=== PATIENT | male | born 1980 | race Caucasian/White ===

== ENCOUNTER 2018-04-28 12:31 | Emergency (ER) | payer BC, OTHER ==
[~2018-04-28] VITALS: Ht 182.9 cm; Wt 83.0 kg
[~2018-04-28 12:31] MED LIST: ALPR1TAB2
[2018-04-28] MEDS ORDERED: cloNIDine HCL 0.1 MG TAB PO ONE (13:00)
[2018-04-28] MEDS ORDERED: TETANUS-DIPTH-ACEL PERTUSSIS 0.5ML SYRG IM ONE (14:15)
[2018-04-28 14:51] VITALS: BP 142/87
[2018-04-28] MEDS ORDERED: LIDOCAINE 1% HCL (LOCAL ANESTH.) INJ 20ML MDV IJ ONE (15:00)
== END 2018-04-28 15:30 | disposition home or self-care (01) ==
LOC: ER 12:34 → EDBD 12:34 → ER 15:30
DX: S01.511A Laceration without foreign body of lip, initial encounter (principal); S01.21XA Laceration without foreign body of nose, initial encounter; I10 Essential (primary) hypertension; F17.210 Nicotine dependence, cigarettes, uncomplicated; M54.2 Cervicalgia; Y04.2XXA Assault by strike against or bumped into by another person, initial encounter; Y93.89 Activity, other specified; Y92.89 Other specified places as the place of occurrence of the external cause; Y99.8 Other external cause status
CPT/HCPCS: 12013; 70450; 70486; 90471; 90715; 99284; J2001

== ENCOUNTER 2020-06-02 14:30 | Emergency (ER) | payer BC, OTHER ==
[~2020-06-02] VITALS: Ht 182.9 cm; Wt 83.0 kg
[2020-06-02 14:36] VITALS: BP 149/92
[2020-06-02 15:29] LABS: Basophils # (auto) 0 10 ^3/uL (0-0.2); Eosinophils # (auto) 0.1 10 ^3/uL (0-0.8); Hematocrit 42.7 % (41.0-53.0); Lymphocytes # (auto) 1.8 10 ^3/uL (0.4-5.4); Nucleated Red Blood Cells % 0.1 %; Red Cell Distribution Width 13.5 % (11.8-14.3)
[2020-06-02 15:32] LABS: Basophils % (auto) 0.3 % (0.0-2.0); Eosinophils % (auto) 2.3 % (0.0-7.0); Lymphocytes % (auto) 30.8 % (10.0-50.0); Mean Corpuscular Hemoglobin 34.2 pg (28.0-32.0); Mean Corpuscular Hgb Conc. 35.1 g/dL (32.0-36.0); Mean Corpuscular Volume 97.5 fL (80.0-100.0); Monocytes # (auto) 0.8 10 ^3/uL (0-1.3); Monocytes % (auto) 14.6 % (0.0-12.0); Platelet Count (auto) 200 10^3/uL (140-450); Red Blood Cells 4.38 10^6/uL (4.5-5.90); White Blood Cell 5.7 10^3/uL (4.4-10.8)
[2020-06-02 15:41] LABS: Albumin 4.2 g/dL (3.4-5.0); Potassium 4.6 mmol/L (3.5-5.1)
[2020-06-02 15:45] LABS: BUN/Creatinine Ratio 11.9; Bilirubin, Total 0.3 mg/dL (0.2-1.0); Total Protein 8.4 g/dL (6.4-8.2)
[2020-06-02] MEDS ORDERED: methylPREDNISolone SOD SUCC 125 MG/2 ML VL IM ONE (17:30)
[2020-06-02] MEDS ORDERED: KETOROLAC TROMETH 60MG/2ML VIAL IM ONE (17:30)
== END 2020-06-02 17:59 | disposition home or self-care (01) ==
LOC: ER 14:30 → EDBD 14:30 → ER 17:53
DX: R20.0 Anesthesia of skin (principal); I10 Essential (primary) hypertension; F17.210 Nicotine dependence, cigarettes, uncomplicated
CPT/HCPCS: 36415; 80053; 85025; 85652; 96372; 99284; J1885; J2930

== ENCOUNTER 2020-06-29 17:31 | Emergency (ER) | payer OTHER ==
[~2020-06-29] VITALS: Ht 185.4 cm; Wt 83.9 kg
[2020-06-29 17:32] VITALS: BP 142/86
[2020-06-29] MEDS ORDERED: methylPREDNISolone SOD SUCC 125 MG/2 ML VL IM ONE (18:15)
== END 2020-06-29 18:24 | disposition home or self-care (01) ==
LOC: ER 17:35
DX: G56.03 Carpal tunnel syndrome, bilateral upper limbs (principal); I10 Essential (primary) hypertension; F17.210 Nicotine dependence, cigarettes, uncomplicated; Z76.0 Encounter for issue of repeat prescription
CPT/HCPCS: 96372; 99283; J2930

== ENCOUNTER 2020-07-09 09:09 | Emergency (ER) | payer OTHER ==
[~2020-07-09] VITALS: Ht 182.9 cm; Wt 83.9 kg
[2020-07-09 09:11] VITALS: BP 148/88
== END 2020-07-09 10:57 | disposition home or self-care (01) ==
LOC: ER 09:09
DX: G56.01 Carpal tunnel syndrome, right upper limb (principal); G56.02 Carpal tunnel syndrome, left upper limb; F17.210 Nicotine dependence, cigarettes, uncomplicated; I10 Essential (primary) hypertension

== ENCOUNTER 2020-10-11 18:17 | Emergency (ER) | payer OTHER ==
[~2020-10-11] VITALS: Ht 182.9 cm; Wt 89.4 kg
[2020-10-11 19:27] VITALS: BP 165/90
[2020-10-11] MEDS ORDERED: methylPREDNISolone SOD SUCC 125 MG/2 ML VL IM ONE (19:45)
== END 2020-10-11 20:26 | disposition home or self-care (01) ==
LOC: ER 18:17
DX: G56.03 Carpal tunnel syndrome, bilateral upper limbs (principal); I10 Essential (primary) hypertension; F17.210 Nicotine dependence, cigarettes, uncomplicated; Z79.899 Other long term (current) drug therapy
CPT/HCPCS: 96372; 99283; J2930

== ENCOUNTER 2020-11-12 10:24 | Emergency (ER) | payer OTHER ==
[~2020-11-12] VITALS: Ht 182.9 cm; Wt 86.2 kg
[2020-11-12 11:56] VITALS: BP 136/99
== END 2020-11-12 13:21 | disposition home or self-care (01) ==
LOC: ER 10:24
DX: J06.9 Acute upper respiratory infection, unspecified (principal); J03.80 Acute tonsillitis due to other specified organisms; B96.89 Other specified bacterial agents as the cause of diseases classified elsewhere; I10 Essential (primary) hypertension; F17.210 Nicotine dependence, cigarettes, uncomplicated; Z20.822 Contact with and (suspected) exposure to COVID-19
CPT/HCPCS: 36415; 87426

== ENCOUNTER 2020-12-25 08:19 | Inpatient (IN) | payer OTHER ==
[~2020-12-25] VITALS: Ht 182.9 cm; Wt 87.1 kg
[2020-12-25 08:58] LABS: Hematocrit 48.7 % (41.0-53.0); Hemoglobin 16.7 g/dL (13.5-17.5); Mean Corpuscular Hemoglobin 33.8 pg (28.0-32.0); Mean Corpuscular Hgb Conc. 34.4 g/dL (32.0-36.0); Mean Corpuscular Volume 98.4 fL (80.0-100.0); Red Blood Cells 4.94 10^6/uL (4.5-5.90); Red Cell Distribution Width 13.2 % (11.8-14.3); White Blood Cell 5.2 10^3/uL (4.4-10.8)
[2020-12-25 09:09] LABS: Basophils % (manual) 0 (0.0-2.0); Blast Cells 0; Eosinophils % (manual) 0 (0-7); Promyelocytes % 0; Reactive Lymphocytes 0
[2020-12-25 09:18] LABS: Albumin 3.5 g/dL (3.4-5.0); Anion Gap 17 (5-15); Blood Urea Nitrogen 18 mg/dL (7-18); Calcium 8.1 mg/dL (8.5-10.1); Carbon Dioxide 21 mmol/L (21-32); Chloride 95 mmol/L (98-107); Glucose 114 mg/dL (74-106); Potassium 3.2 mmol/L (3.5-5.1); Sodium 133 mmol/L (136-145)
[2020-12-25 09:24] LABS: Alanine Aminotransferase 64 U/L (16-61); Alkaline Phosphatase 29 U/L (45-117); Aspartate Aminotransferase 47 U/L (15-37); BUN/Creatinine Ratio 14.5; GFR African American 84 mL/min; GFR Non-African American 69 mL/min; Total Protein 8.1 g/dL (6.4-8.2)
[2020-12-25] MEDS ORDERED: cefTRIAXone 1GM/50ML D5W 50 ML IV ONE (10:00)
[2020-12-25] MEDS ORDERED: AZITHROMYCIN 500MG/ 250ML 250 ML IV ONE (10:00)
[2020-12-25 10:15] LABS: Band Neutrophils % (manual) 45; Lymphocytes % (manual) 8 (10.0-50.0); Metamyelocytes % 6; Monocytes % (manual) 6 (0-12); Myelocytes % 1
[2020-12-25] MEDS ORDERED: POTASSIUM EFFERVESENT TAB 25 MEQ PO ONE (10:15)
[2020-12-25] MEDS ORDERED: SODIUM CHLORIDE 0.9% 2,000 ML IV ONE (12:45)
[2020-12-25] MEDS ORDERED: NITROGLYCERIN 0.4 MG SL TAB SL PRN (13:00)
[2020-12-25] MEDS ORDERED: ACETAMINOPHEN 500 MG TAB PO ONE (13:00)
[2020-12-25] MEDS ORDERED: MORPHINE SULFATE INJECTION 2 MG/ML SYRG IV PRN (13:00)
[2020-12-25] MEDS ORDERED: ACETAMINOPHEN 500 MG TAB PO PRN (13:00)
[2020-12-25] MEDS ORDERED: ONDANSETRON HCL 4 MG/2 ML VIAL IV PRN (13:15)
[2020-12-25 14:21] LABS: Urine Bacteria NONE SEEN /hpf (None Seen); Urine Blood Negative /uL (Negative); Urine Hyaline Cast FEW /lpf (0 - 2); Urine Specific Gravity 1.022 (1.001-1.035); Urine WBC 11 /hpf (0 - 3)
[2020-12-25 14:33] LABS: Amphetamine Screen, Urine NEGATIVE (NEGATIVE); Barbiturate Scree,Urine NEGATIVE (NEGATIVE); Benzodiazephine Screen, Urine NEGATIVE (NEGATIVE); Cannabinoid Screen, Urine POSITIVE (NEGATIVE); Cocaine Screen, Urine NEGATIVE (NEGATIVE); Opiate Scree,Urine POSITIVE (NEGATIVE); Phencyclidine Screen, Urine NEGATIVE (NEGATIVE)
[2020-12-25] MEDS: HYDROcodone-ACET 5/325MG TAB PO PRN (18:39)
[2020-12-25 19:57] VITALS: BP 127/87
[2020-12-25] MEDS: ENOXAPARIN SOD 40 MG/0.4 ML SYRINGE SC SCH (21:44)
[2020-12-25] MEDS: BUDESONIDE (INHALATION) 180 MCG IH IN SCH ×2 (22:00→22:18)
[2020-12-25] MEDS ORDERED: TEMAZEPAM 15 MG CAP PO ONE (22:00)
[2020-12-25] MEDS ORDERED: VANCOMYCIN PER PHARMACY 0 MG IV SCH (23:15)
[2020-12-25] MEDS ORDERED: VANCOMYCIN 1GM/250ML 250 ML IV ONE (23:45)
[2020-12-26] MEDS: MORPHINE SULFATE INJECTION 2 MG/ML SYRG IV PRN ×3 (03:34→20:27)
[2020-12-26 05:38] LABS: Calcium 8.1 mg/dL (8.5-10.1)
[2020-12-26 05:41] LABS: Albumin 2.6 g/dL (3.4-5.0); BUN/Creatinine Ratio 21.4
[2020-12-26 05:44] LABS: Bilirubin, Total 0.6 mg/dL (0.2-1.0)
[2020-12-26 05:50] LABS: Hemoglobin 13.9 g/dL (13.5-17.5)
[2020-12-26 05:52] LABS: Hematocrit 39.4 % (41.0-53.0); Mean Corpuscular Hemoglobin 34.8 pg (28.0-32.0); Mean Corpuscular Hgb Conc. 35.3 g/dL (32.0-36.0); Mean Corpuscular Volume 98.5 fL (80.0-100.0); Red Cell Distribution Width 13.1 % (11.8-14.3); White Blood Cell 8.1 10^3/uL (4.4-10.8)
[2020-12-26 06:15] LABS: Basophils % (manual) 0 (0.0-2.0); Blast Cells 0; Eosinophils % (manual) 0 (0-7); Metamyelocytes % 0; Promyelocytes % 0; Reactive Lymphocytes 0
[2020-12-26] MEDS: HYDROcodone-ACET 5/325MG TAB PO PRN ×2 (06:32→21:29)
[2020-12-26] MEDS ORDERED: POTASSIUM CHL 20 Meq TABLET PO ONE (07:00)
[2020-12-26 07:08] LABS: Band Neutrophils % (manual) 43; Lymphocytes % (manual) 12 (10.0-50.0); Monocytes % (manual) 5 (0-12); Myelocytes % 1
[2020-12-26 09:00] VITALS: BP 119/79
[2020-12-26] MEDS: ALBUTEROL SULF HFA 90MCG INH 200DOSE IN PRN ×2 (10:06→19:56)
[2020-12-26] MEDS: BUDESONIDE (INHALATION) 180 MCG IH IN SCH ×2 (10:07→19:55)
[2020-12-26] MEDS: ASCORBIC ACID 1,000 MG TAB PO SCH (10:27)
[2020-12-26] MEDS: cefTRIAXone 1GM/50ML D5W 50 ML IV SCH (10:27)
[2020-12-26] MEDS: ZINC SULFATE 220mg CAP or TAB PO SCH (10:28)
[2020-12-26] MEDS: CHOLECALCIFEROL (VITD3) 2,000 UNIT CAP/TAB PO SCH (10:28)
[2020-12-26] MEDS: ENOXAPARIN SOD 40 MG/0.4 ML SYRINGE SC SCH ×2 (10:28→21:20)
[2020-12-26] MEDS: AZITHROMYCIN 500MG/ 250ML 250 ML IV SCH (12:27)
[2020-12-26 13:00] VITALS: BP 119/78
[2020-12-26 17:00] VITALS: BP 116/70
[2020-12-26 20:00] VITALS: BP 117/70
[2020-12-26 22:00] VITALS: BP 117/70
[2020-12-27] VITALS (7 sets, daily range): BP systolic 119–147; BP diastolic 75–97
[2020-12-27] MEDS: BUDESONIDE (INHALATION) 180 MCG IH IN SCH ×2 (06:32→19:56)
[2020-12-27] MEDS: ALBUTEROL SULF HFA 90MCG INH 200DOSE IN PRN (06:32)
[2020-12-27] MEDS: cefTRIAXone 1GM/50ML D5W 50 ML IV SCH (09:37)
[2020-12-27] MEDS: AZITHROMYCIN 500MG/ 250ML 250 ML IV SCH (10:38)
[2020-12-27] MEDS: CHOLECALCIFEROL (VITD3) 2,000 UNIT CAP/TAB PO SCH (10:38)
[2020-12-27] MEDS: DexAMETHasone SOD PHOS 10MG/1ML VIAL INJ IV SCH (10:38)
[2020-12-27] MEDS: ASCORBIC ACID 1,000 MG TAB PO SCH (10:38)
[2020-12-27] MEDS: ZINC SULFATE 220mg CAP or TAB PO SCH (10:38)
[2020-12-27] MEDS: ENOXAPARIN SOD 40 MG/0.4 ML SYRINGE SC SCH ×2 (10:38→22:01)
[2020-12-27] MEDS: MORPHINE SULFATE INJECTION 2 MG/ML SYRG IV PRN ×3 (10:39→22:02)
[2020-12-28] MEDS: HYDROcodone-ACET 5/325MG TAB PO PRN (00:39)
[2020-12-28 05:00] VITALS: BP 132/89
[2020-12-28] MEDS: ALBUTEROL SULF HFA 90MCG INH 200DOSE IN PRN (06:13)
[2020-12-28] MEDS: BUDESONIDE (INHALATION) 180 MCG IH IN SCH (06:13)
[2020-12-28 08:15] VITALS: BP 142/93
[2020-12-28] MEDS: cefTRIAXone 1GM/50ML D5W 50 ML IV SCH (09:09)
[2020-12-28] MEDS: MORPHINE SULFATE INJECTION 2 MG/ML SYRG IV PRN (09:10)
[2020-12-28 09:17] VITALS: BP 142/93
[2020-12-28] MEDS: ZINC SULFATE 220mg CAP or TAB PO SCH (09:44)
[2020-12-28] MEDS: AZITHROMYCIN 500MG/ 250ML 250 ML IV SCH (09:44)
[2020-12-28] MEDS: DexAMETHasone SOD PHOS 10MG/1ML VIAL INJ IV SCH (09:44)
[2020-12-28] MEDS: CHOLECALCIFEROL (VITD3) 2,000 UNIT CAP/TAB PO SCH (09:45)
[2020-12-28] MEDS: ENOXAPARIN SOD 40 MG/0.4 ML SYRINGE SC SCH (09:45)
[2020-12-28] MEDS: ASCORBIC ACID 1,000 MG TAB PO SCH (09:45)
[2020-12-28 11:09] VITALS: BP 142/93
== END 2020-12-28 12:30 | disposition home or self-care (01) | DRG 720 ==
LOC: ER 08:19 → TELE 12:57 → TELE-EAST 12-26 08:28
PROVIDERS: ADMIT Nurse Practitioner Acute Care; ATTEND Family Medicine
DX: A41.89 Other specified sepsis (principal); J96.01 Acute respiratory failure with hypoxia; J12.82 Pneumonia due to coronavirus disease 2019; U07.1 COVID-19; E87.6 Hypokalemia; F17.210 Nicotine dependence, cigarettes, uncomplicated; F41.9 Anxiety disorder, unspecified; F19.10 Other psychoactive substance abuse, uncomplicated; F10.10 Alcohol abuse, uncomplicated; Y90.9 Presence of alcohol in blood, level not specified; F12.10 Cannabis abuse, uncomplicated; Z71.6 Tobacco abuse counseling
CPT/HCPCS: 36415; 71046; 80053; 80307; 81001; 82728; 83605; 83615; 83735; 84484; 85007; 85027; 87040; 87077; 87186; 87426; 93005; 94640; 96365; 96368; G0378; J0696; J1100

== ENCOUNTER 2022-10-25 19:59 | Emergency (ER) | payer OTHER ==
[~2022-10-25] VITALS: Ht 182.9 cm; Wt 80.0 kg
[2022-10-25] MEDS ORDERED: CEPH500T PO (22:28)
[2022-10-25] MEDS ORDERED: KETOROLAC TROMETH 60MG/2ML VIAL IM ONE (22:30)
[2022-10-25] MEDS ORDERED: cefTRIAXone SOD 1,000 MG VL IM ONE (22:30)
[2022-10-25 22:51] VITALS: BP 113/85; PULSE 102; RESP 14; TEMP 98.2; O2SAT 97
== END 2022-10-25 22:54 | disposition home or self-care (01) ==
LOC: ER 19:59
DX: S80.261A Insect bite (nonvenomous), right knee, initial encounter (principal); L03.115 Cellulitis of right lower limb; W57.XXXA Bitten or stung by nonvenomous insect and other nonvenomous arthropods, initial encounter; Y93.89 Activity, other specified; Y92.89 Other specified places as the place of occurrence of the external cause; Y99.8 Other external cause status
CPT/HCPCS: 96372; 99284; J0696; J1885

== ENCOUNTER 2022-11-22 21:30 | Emergency (ER) | payer OTHER ==
[~2022-11-22] VITALS: Ht 182.9 cm; Wt 80.9 kg
[~2022-11-22 21:30] MED LIST changes: +CEPH500T PO
[2022-11-22 22:00] VITALS: BP 127/89; PULSE 122; RESP 18
[2022-11-22] MEDS ORDERED: LIDOCAINE 1% HCL (LOCAL ANESTH.) INJ 20ML MDV ID ONE (22:45)
[2022-11-22] MEDS ORDERED: NEOMYCIN-BACITRACIN-POLYM UNITDOSE PKG TOP OINT TOP ONE (22:45)
[2022-11-22 23:14] VITALS: O2SAT 97
== END 2022-11-22 23:42 | disposition home or self-care (01) ==
LOC: ER 21:33
DX: S61.411A Laceration without foreign body of right hand, initial encounter (principal); S81.812A Laceration without foreign body, left lower leg, initial encounter; S61.451A Open bite of right hand, initial encounter; S81.852A Open bite, left lower leg, initial encounter; F17.210 Nicotine dependence, cigarettes, uncomplicated; Z79.899 Other long term (current) drug therapy; W54.0XXA Bitten by dog, initial encounter; Y93.89 Activity, other specified; Y92.89 Other specified places as the place of occurrence of the external cause; Y99.8 Other external cause status
CPT/HCPCS: J2001